=== PATIENT | female | born 1960 | race Caucasian/White ===

== ENCOUNTER → 2016-08-01 | Outpatient (CLI) | payer OTHER ==
--- NOTE | 2016-08-01 15:24 | XR ---
EXAMINATION TYPE: XR KUB DATE OF EXAM: 08/01/2016 3:15 PM CLINICAL DATA: 56-year-old female kidney stone, UTI, bilateral flank pain, PHH COMPARISON: 11/08/2015 FINDINGS: Nonobstructive bowel gas pattern. Cholecystectomy clips. Multiple surgical staple lines projected at the GE junction and left mid abdomen as well, possible Ro ux-en-Y gastric bypass. This can be correlated clinically. No definite suspicious calcification seen though there is extensive bowel content obscuring much of t he renal shadows. Scattered moderate stool. IMPRESSION: No definite suspicious calcification. There is moderate stool and bowel gas causing limitations in vi sualization. Post surgical changes, possible prior Stephanie-en-Y gastric bypass. Clinically correlate.
== END | disposition home or self-care (01) ==
LOC: RADXRMAIN 14:59
PROVIDERS: ATTEND Urology
DX: N20.0 Calculus of kidney (principal); N39.0 Urinary tract infection, site not specified; Z98.890 Other specified postprocedural states
CPT/HCPCS: 74000

== ENCOUNTER → 2016-10-19 | Outpatient (CLI) | payer OTHER ==
--- NOTE | 2016-10-19 10:04 | CT ---
EXAMINATION TYPE: CT abdomen pelvis wo con DATE OF EXAM: 10/19/2016 COMPARISON: KUB 08/01/2016 HISTORY: Rt flank pain, history of stones CT DLP: 1270.7 mGycm Automated exposure control for dose reduction was used. TECHNIQUE: Helical acquisition of images from the lung bases through the pelvis. FINDINGS: LUNG BASES: No significant abnormality is appreciated. AORTA: No significant abnormality is appreciated. LIVER/GB: Patient is post cholecystectomy. Liver shows no mass on this unenhanced exam. Liver is enla rged. PANCREAS: No significant abnormality is seen. SPLEEN: No significant abnormality is seen. ADRENALS: No significant abnormality is seen. KIDNEYS: Nonobstructive calculus at the upper pole the left kidney measures 5 mm, additional 2 mm angie cification also present at the upper pole. No hydronephrosis bilaterally. No evident ureteral calculu s. REPRODUCTIVE ORGANS: Uterus and left adnexal structures are not seen. Suspect a right ovary remains in place. URINARY BLADDER: No significant abnormality is seen. BOWEL: No significant abnormality is seen. Patient is status post gastric sleeve surgery, some mild dilation of the distal esophagus is likely postoperative. Postop change noted to the anterior abdomin al wall in the midline. Postop changes also noted to the jejunum in the left hemiabdomen. FREE AIR: No Free Air is visible. ASCITES: None visible. PELVIC ADENOPATHY: None visualized. RETROPERITONEAL ADENOPATHY: No Retroperitoneal Adenopathy visible. OSSEOUS STRUCTURES: Degenerative disc changes are present in the visualized spine. IMPRESSION: NONOBSTRUCTIVE CALCULI UPPER POLE LEFT KIDNEY. NONCONTRAST EXAM. POSTOP CHANGES DESCRIBED.
== END | disposition home or self-care (01) ==
LOC: RADCTMAIN 06:52
PROVIDERS: ATTEND Urology
DX: N20.0 Calculus of kidney (principal); Z88.0 Allergy status to penicillin; Z88.2 Allergy status to sulfonamides; Z88.1 Allergy status to other antibiotic agents; Z98.890 Other specified postprocedural states
CPT/HCPCS: 74176

== ENCOUNTER → 2016-11-18 | Outpatient (CLI) | payer OTHER ==
[2016-11-18 10:32] LABS: Basophils % (A) 1 %; CH 28.2; CHCM 32.8; Eosinophils # (A) 0.2 k/uL (0-0.7); Eosinophils % (A) 3 %; HCT 42.1 % (34.0-46.0); HDW 2.87; HGB 14.3 gm/dL (11.4-16.0); Luc # (Auto) 0.12; Luc % (Auto) 2; Lymphocytes # (A) 1.8 k/uL (1.0-4.8); Lymphocytes % (A) 29 %; MCH 29.3 pg (25.0-35.0); MCV 86.3 fL (80.0-100.0); Mean Platelet Volume 7.2; Monocytes # (A) 0.4 k/uL (0-1.0); Monocytes % (A) 6 %; Neutrophils # (A) 3.7 k/uL (1.3-7.7); Neutrophils % (A) 60 %; RBC 4.88 m/uL (3.80-5.40); RDW 13.4 % (11.5-15.5); WBC 6.1 k/uL (3.8-10.6); WBC (Perox) 6.39
== END | disposition home or self-care (01) ==
LOC: LABPAT 10:06
PROVIDERS: ATTEND Physician Assistant
DX: Z01.810 Encounter for preprocedural cardiovascular examination (principal); E03.9 Hypothyroidism, unspecified; N20.0 Calculus of kidney; R53.83 Other fatigue
CPT/HCPCS: 36415; 85025; 93005

== ENCOUNTER → 2016-11-18 | Outpatient (CLI) | payer OTHER ==
[2016-11-18 10:50] LABS: ALT 41 U/L (9-52); AST 20 U/L (14-36); Alkaline Phosphatase 149 U/L (38-126); Anion Gap 13 mmol/L; Blood Urea Nitrogen 22 mg/dL (7-17); Calcium 9.8 mg/dL (8.4-10.2); Carbon Dioxide 26 mmol/L (22-30); Chloride 105 mmol/L (98-107); Cholesterol 173 mg/dL (<200); Glucose 91 mg/dL (74-99); HDL Cholesterol 61 mg/dL (40-60); Non-African American GFR(MDRD) >60 (>60 ml/min/1.73 sqM); Potassium 4.4 mmol/L (3.5-5.1); Sodium 144 mmol/L (137-145); Total Bilirubin 0.5 mg/dL (0.2-1.3); Total Protein 7.1 g/dL (6.3-8.2)
== END | disposition home or self-care (01) ==
LOC: LABWHC1 10:08
PROVIDERS: ATTEND Family Medicine
DX: E78.2 Mixed hyperlipidemia (principal); E03.9 Hypothyroidism, unspecified; F41.1 Generalized anxiety disorder; J45.909 Unspecified asthma, uncomplicated
CPT/HCPCS: 36415; 80053; 80061; 84439; 84443

== ENCOUNTER 2016-11-28 07:09 | Day surgery (SDC) | payer OTHER ==
[2016-11-21 11:35] VITALS: BMI 42.7
[~2016-11-28 07:09] MED LIST: DEXAMETHASONE SOD PHOSPHATE 10 MG/ML 1 ML VIAL IV ONE; HYDROmorphone 1 MG/ML 1 ML SYRINGE IVP PRN; LACTATED RINGERS 1,000 ML IV SCH; LIDOCAINE 1% 20 ML VIAL (10MG/ML) FOR IV START INTRADERMA PRN; Pre Op ABX Message 1 EACH MISC MISCELLANE ONE; SCOPOLAMINE 1.5MG/72HR PATCH TRANSDERM ONE
[2016-11-28 07:29] VITALS: RESP 16; TEMP 99.1
[2016-11-28] MEDS ORDERED: LIDOCAINE 1% 20 ML VIAL (10MG/ML) FOR IV START INTRADERMA ONE (07:35)
[2016-11-28] MEDS ORDERED: ONDANSETRON 4 MG/2 ML VIAL IVP ONE (07:43)
--- NOTE | 2016-11-28 07:52 | P.PN ---
Progress Note - Text Ammended History and Physical The patient has a 2x4 mm calculus in the upper pole of the LEFT kidney that will be treated via ESWL. History and Physical was in error. The patient agrees.
--- NOTE | 2016-11-28 08:06 | XR ---
EXAMINATION TYPE: XR KUB DATE OF EXAM: 11/28/2016 COMPARISON: 08/01/2016 HISTORY: Kidney stone TECHNIQUE: One view abdominal series FINDINGS: The osseous structures are intact. The bowel gas pattern is nonspecific. Postsurgical changes in the abdomen noted. Calcification seen by CAT scan not as well appreciated with standard x-ray.. IMPRESSION: 1. Nonspecific abdomen. Calcification seen by CT scan not as well identified by standard x-ray.
[2016-11-28] MEDS ORDERED: fentaNYL (PF) 50 MCG/ML 2 ML AMP ONE (08:27)
[2016-11-28] MEDS ORDERED: MIDAZOLAM 2 MG/2 ML VIAL ONE (08:27)
[2016-11-28] MEDS ORDERED: KETAMINE 10 MG/ML 20 ML VIAL ONE (08:27)
[2016-11-28] MEDS ORDERED: PROPOFOL 10 MG/ML 20 ML VIAL IV ONE (08:27)
--- NOTE | 2016-11-28 09:18 | P.OP ---
Date of Procedure: 11/28/16 Preoperative Diagnosis: Left renal calculus Postoperative Diagnosis: Left renal calculus Procedure(s) Performed: Extracorporal shockwave lithotripsy Implants: Anesthesia: MAC Surgeon: Eron Romero Condition: stable Disposition: PACU Indications for Procedure: Operative Findings: The patient is a 56 year old female with a history of recvurent urolithiasis. A recent CT scan and KUB showed a 2x4 mm calculus in the upper pole of the left kidney. Treatment opotions were reviewed with dr Jade and ESWL has been chosen. The patient was taken to the operating suite where intravenous sedation was given. Patient was placed in the supine position on the fluoroscopy table. The calculus in the upper pole of the left kidney was localized using biplanar fluoroscopy. Lithotripsy was performed using the Dornier compact delta unit. Patient received 2500 shocks at level 5 at a rate of 80 shocks per minute. There appeared to be good fragmentation of the calculus. Anesthesia was reversed and the patient was returned to the recovery room awake and in satisfactory condition. Patient was seen back in follow-up by Dr. Jade in 1 week. A KUB will be obtained at that time. Description of Procedure:
[2016-11-28 09:37] VITALS: BP 131/80; PULSE 66
== END 2016-11-28 10:09 | disposition home or self-care (01) ==
LOC: ORWHC2ENDO 07:09
PROVIDERS: ATTEND Urology
DX: N20.0 Calculus of kidney (principal); J45.909 Unspecified asthma, uncomplicated; E07.9 Disorder of thyroid, unspecified; K21.9 Gastro-esophageal reflux disease without esophagitis; Z87.440 Personal history of urinary (tract) infections; Z79.899 Other long term (current) drug therapy; Z88.1 Allergy status to other antibiotic agents; Z88.0 Allergy status to penicillin; Z88.2 Allergy status to sulfonamides
CPT/HCPCS: 74000; 50590; J2250; J1100; J2405; J3010; J2704

== ENCOUNTER → 2016-12-02 | Outpatient (CLI) | payer OTHER ==
--- NOTE | 2016-12-02 12:33 | XR ---
EXAMINATION TYPE: XR KUB DATE OF EXAM: 12/02/2016 COMPARISON: NONE HISTORY: Pain TECHNIQUE: Single supine KUB image of the abdomen is obtained FINDINGS: Small bowel demonstrates no evidence for dilatation or air fluid levels. Gas and fecal material is seen in non-distended colon. No convincing evidence for pneumoperitoneum. No unusual calcifications. Calcifications seen on CT not well identified. Plain film radiography. The lung bases are clear. The osseous structures are intact. Postoperative changes noted. IMPRESSION: 1. Overall nonobstructive bowel gas pattern.
== END | disposition home or self-care (01) ==
LOC: RADXRMAIN 12:12
PROVIDERS: ATTEND Physician Assistant
DX: N20.0 Calculus of kidney (principal)
CPT/HCPCS: 74000

== ENCOUNTER → 2016-12-23 | Outpatient (CLI) | payer OTHER ==
--- NOTE | 2016-12-26 07:43 | MM ---
Reason for exam: screening (asymptomatic). Last mammogram was performed 1 year and 3 months ago. History: Patient is postmenopausal and had first child at age 29. Benign stereotactic core biopsy of the right breast, August 11, 2000. Benign excisional biopsy of the right breast, July 03, 2000. Core biopsy of the right breast. Took estrogen for 12 years. Physical Findings: A clinical breast exam by your physician is recommended on an annual basis and results should be correlated with mammographic findings. MG Screening Mammo w CAD Bilateral CC and MLO view(s) were taken. Prior study comparison: September 23, 2015, left breast MG work up mamm w CAD LT. September 11, 2015, bilateral MG screening mammo w CAD. The breast tissue is almost entirely fat. Previous mammotome biopsy in the right breast. Asymmetric breast tissue in the left breast. No significant changes when compared with prior studies. ASSESSMENT: Benign, BI-RAD 2 RECOMMENDATION: Routine screening mammogram of both breasts in 1 year.
== END ==
LOC: RADMAMWWP 08:31
PROVIDERS: ATTEND Family Medicine
DX: Z12.31 Encounter for screening mammogram for malignant neoplasm of breast (principal)

== ENCOUNTER → 2017-01-04 | Outpatient (CLI) | payer OTHER ==
--- NOTE | 2017-01-04 22:17 | US ---
EXAMINATION TYPE: US kidneys/renal and bladder DATE OF EXAM: 01/04/2017 COMPARISON: CT 10/19/2016 CLINICAL HISTORY: 48-year-old female N200 CALCULUS OF KIDNEY. Patient stated had lithotripsy in 2016 for left renal stones seen on October CT. TECHNIQUE: Multiple sonographic images of the kidneys and bladder obtained. FINDINGS: Right Kidney: 11.2 x 5.2 x 4.7 cm without hydronephrosis. Left Kidney: 12.8 x 7.4 x 6.6 cm with mild to moderate hydronephrosis. Underdistention of the bladder limits its evaluation. Post Void Residual Volume: 2.3 mL Bilateral Jets seen: Yes Normal Post Void Residual: Yes IMPRESSION: 1. [id number] hydronephrosis on the left. 2. No urinary retention.
== END | disposition home or self-care (01) ==
LOC: RADUSWWP 15:49
PROVIDERS: ATTEND Family Medicine
DX: N13.30 Unspecified hydronephrosis (principal)
CPT/HCPCS: 76770

== ENCOUNTER → 2018-02-23 | Outpatient (CLI) | payer BC, OTHER ==
--- NOTE | 2018-02-26 09:12 | MM ---
Reason for exam: screening (asymptomatic). Last mammogram was performed 1 year and 2 months ago. History: Patient is postmenopausal and had first child at age 29. Benign stereotactic core biopsy of the right breast, August 11, 2000. Benign excisional biopsy of the right breast, July 03, 2000. Core biopsy of the right breast. Took estrogen for 12 years. Physical Findings: A clinical breast exam by your physician is recommended on an annual basis and results should be correlated with mammographic findings. MG Screening Mammo w CAD Bilateral CC and MLO view(s) were taken. Prior study comparison: December 23, 2016, bilateral MG screening mammo w CAD. September 23, 2015, left breast MG work up mamm w CAD LT. There are scattered fibroglandular densities. There is no discrete abnormality. No significant changes when compared with prior studies. ASSESSMENT: Negative, BI-RAD 1 RECOMMENDATION: Routine screening mammogram of both breasts in 1 year.
== END ==
LOC: RADMAMWWP 07:42
PROVIDERS: ATTEND Obstetrics & Gynecology
DX: Z12.31 Encounter for screening mammogram for malignant neoplasm of breast (principal)
CPT/HCPCS: 77067

== ENCOUNTER → 2018-04-20 | Outpatient (CLI) | payer BC, OTHER ==
--- NOTE | 2018-04-20 10:06 | BD ---
EXAMINATION TYPE: Axial Bone Density DATE OF EXAM: 04/20/2018 COMPARISON: Exam of 2008 CLINICAL HISTORY: M 85.8 Height: 5 FT 6 IN Weight: 258 FRAX RISK QUESTIONS: History of Fracture in Adulthood: YES Secondary Osteoporosis: 3. Menopause before 45: YES Rheumatoid Arthritis: YES RISK FACTORS HISTORY OF: Family History of Osteoporosis: YES Active: YES Postmenopausal woman: PARTIAL HYST AGE 38 Take estrogen and/or progesterone medications: TOOK HRT FROM [age] NO LONGER TAKES MEDICATIONS: Thyroid Medications: YES Which medication: SYNTHROID How Lon YEARS Additional Medications: Additional History: SYNTHROID, PREVACID, CELEBREX, SINGULAIR, EFFEXOR, ATORVASTATIN, DETROL, AMTRIPTO LINE, ALBUTEROL EXAM MEASUREMENTS: Bone mineral densitometry was performed using the [employer] System. Bone mineral density as measured about the Lumbar spine is: ----- L1-L4(G/cm2): 1.178 T Score Values are as follows: ----- L2: -0.5 ----- L3: 0.4 ----- L4: 0.6 ----- L1-L4: 0.0 Bone mineral density has: INCREASED 15.6 % since study of: 2008 Bone mineral density about the R hip (g/cm2): 0.702 Bone mineral density about the L hip (g/cm2): 0.743 T Score values are as follows: -----R Neck: -2.4 -----L Neck: -2.1 -----R Total: -1.7 -----L Total: -1.3 Bone mineral density has: DECREASED -4.5 % since study of: 2008 IMPRESSION: Osteopenia (T Score between -2.5 and -1). There is slightly increased risk of fracture and the patient may be considered for treatment. Re-Screen 2-5 years. NOTE: T-SCORE=SD OF THE YOUNG ADULT MEAN.
== END | disposition home or self-care (01) ==
LOC: RADBDWWP 06:55
PROVIDERS: ATTEND Physician Assistant Medical
DX: M85.88 Other specified disorders of bone density and structure, other site (principal)
CPT/HCPCS: 77080

== ENCOUNTER → 2019-05-22 | Outpatient (CLI) | payer BC, OTHER ==
--- NOTE | 2019-05-23 14:31 | MM ---
Reason for exam: screening (asymptomatic). Last mammogram was performed 1 year and 3 months ago. History: Patient is postmenopausal and had first child at age 29. Benign stereotactic core biopsy of the right breast, August 11, 2000. Benign excisional biopsy of the right breast, July 03, 2000. Core biopsy of the right breast. Took estrogen for 12 years. Physical Findings: A clinical breast exam by your physician is recommended on an annual basis and results should be correlated with mammographic findings. MG Screening Mammo w CAD Bilateral CC, MLO, and XCCL view(s) were taken. Prior study comparison: February 23, 2018, bilateral MG screening mammo w CAD. December 23, 2016, bilateral MG screening mammo w CAD. There are scattered fibroglandular densities. Stable benign calcifications. No significant changes when compared with prior studies. ASSESSMENT: Benign, BI-RAD 2 RECOMMENDATION: Routine screening mammogram of both breasts in 1 year.
== END | disposition home or self-care (01) ==
LOC: RADMAMWWP 13:32
PROVIDERS: ATTEND Family Medicine
DX: Z12.31 Encounter for screening mammogram for malignant neoplasm of breast (principal)
CPT/HCPCS: 77067

== ENCOUNTER → 2020-06-19 | Outpatient (CLI) | payer BC, OTHER ==
--- NOTE | 2020-06-19 23:50 | MR ---
EXAMINATION TYPE: MR brain wo/w con DATE OF EXAM: 06/19/2020 COMPARISON: None HISTORY: Diplopia, bilateral tinnitus, un specified hypothyroidism, and headaches. CONTRAST: Standard multiplanar, multisequence MRI departmental protocol utilizing 12 mL intravenous Gadavist ga dolinium contrast. There is mild cerebral cortical atrophy. There is no mass effect nor midline shift. There is no sign of intracranial hemorrhage. The calvarium is intact. The diffusion images show no evidence of an acut e infarct. There is 14 mm rounded area of increased signal in the anterior right internal capsule on the T2 and FLAIR images. The brainstem is intact. There is no evidence of a posterior fossa mass. Con trast images show no pathologic enhancement. There is normal enhancement of the venous sinuses. There is no evidence of mass at the internal auditory canals. There is no evidence of orbital mass. The co rpus callosum is intact. Sella turcica is intact. IMPRESSION: Single rounded area of increased signal in the anterior right internal capsule without enhancement. T his could be an old lacunar infarct. Single focus of demyelinating disease also possible. No evidence of cortical infarct.
== END ==
LOC: RADMRIMAIN 18:37
PROVIDERS: ATTEND Family Medicine
DX: R51.9 Headache, unspecified (principal)
CPT/HCPCS: 70553; A9585

== ENCOUNTER → 2020-09-11 | Outpatient (CLI) | payer BC, OTHER ==
--- NOTE | 2020-09-14 08:21 | MM ---
Reason for exam: screening (asymptomatic). Last mammogram was performed 1 year and 4 months ago. History: Patient is postmenopausal and had first child at age 29. Benign stereotactic core biopsy of the right breast, August 11, 2000. Benign excisional biopsy of the right breast, July 03, 2000. Core biopsy of the right breast. Took estrogen for 12 years. Physical Findings: A clinical breast exam by your physician is recommended on an annual basis and results should be correlated with mammographic findings. MG Screening Mammo w CAD Bilateral CC, MLO, and XCCL view(s) were taken. Prior study comparison: May 22, 2019, bilateral MG screening mammo w CAD. February 23, 2018, bilateral MG screening mammo w CAD. There are scattered fibroglandular densities. There are benign appearing round calcifications in the right breast. Previous mammotome biopsy in the right breast. There is no discrete abnormality. ASSESSMENT: Benign, BI-RAD 2 RECOMMENDATION: Routine screening mammogram of both breasts in 1 year.
== END | disposition home or self-care (01) ==
LOC: RADMAMWWP 09:31
PROVIDERS: ATTEND Family Medicine
DX: Z12.31 Encounter for screening mammogram for malignant neoplasm of breast (principal); Z78.0 Asymptomatic menopausal state
CPT/HCPCS: 77067

== ENCOUNTER → 2020-09-16 | Outpatient (CLI) | payer BC, OTHER ==
[2020-09-16 14:38] LABS: Basophils # (A) 0.04 X 10*3/uL (0.00-0.10); Basophils % (A) 0.8 %; Eosinophils % (A) 2.1 %; HCT 38.4 % (37.2-46.3); HGB 12.3 g/dL (12.0-15.0); Lymphocytes # (A) 1.67 X 10*3/uL (0.90-5.00); Lymphocytes % (A) 35.3 %; MCH 28.1 pg (27.0-32.0); MCV 87.9 fL (80.0-97.0); Mean Platelet Volume 10.9 fL (9.5-12.2); Monocytes # (A) 0.32 X 10*3/uL (0.20-1.00); Monocytes % (A) 6.8 %; Neutrophils # (A) 2.58 X 10*3/uL (1.80-7.70); Neutrophils % (A) 54.6 %; Platelet Count 321 X 10*3/uL (140-440); RBC 4.37 X 10*6/uL (4.10-5.20); RDW 13.1 % (11.5-14.5); WBC 4.73 X 10*3/uL (4.50-10.00)
[2020-09-16 18:06] LABS: African American GFR (CKD) 107.6 (60.0-200.0); Albumin 4.4 g/dL (3.80-4.90); Albumin/Globulin Ratio 1.83 (1.60-3.17); Anion Gap 8.3 mmol/L (4.00-12.00); BUN/Creat Ratio 32.86 Ratio (12.00-20.00); Calcium 9.5 mg/dL (8.7-10.3); Carbon Dioxide 27.7 mmol/L (21.6-31.8); Globulin 2.4 g/dL (1.6-3.3); Non-African American GFR(CKD) 92.9 (60.0-200.0); Potassium 4.7 mmol/L (3.5-5.5); T4, Free (Free Thyroxine) 0.9 ng/dL (0.80-1.80); Total Bilirubin 0.4 mg/dL (0.3-1.2); Total Protein 6.8 g/dL (6.2-8.2)
[2020-09-16 18:10] LABS: Hepatitis B Core IgM Non-Reactive (Non-Reactive); Hepatitis B Surface Antigen Non-Reactive (Non-Reactive)
[2020-09-16 19:43] LABS: Hemoglobin A1C 5.8 % (4.0-6.0)
[2020-09-18 06:52] LABS: Vit B1(Thiamine) 91 ug/L (38-122)
[2020-09-18 12:26] LABS: IgG/Albumin Index (CSF) 0.52 (0.00 - 0.77); Immunoglobulin G 844 mg/dL (700 - 1600)
[2020-09-18 23:55] LABS: HTLV-1 and 2 (EIA) Negative (Negative)
== END | disposition home or self-care (01) ==
LOC: LABWHC1 09:13
PROVIDERS: ATTEND Psychiatry & Neurology Neurology
DX: H46.9 Unspecified optic neuritis (principal); G43.909 Migraine, unspecified, not intractable, without status migrainosus; H53.9 Unspecified visual disturbance; R53.1 Weakness; R20.9 Unspecified disturbances of skin sensation
CPT/HCPCS: 36415; 80053; 82040; 82042; 82306; 82607; 82784; 83036; 83916; 84207; 84425; 84439; 84443; 84481; 85025; 86704; 86705; 86790; 87340

== ENCOUNTER → 2020-10-15 | Outpatient (CLI) | payer BC, OTHER | END | disposition home or self-care (01) | LOC: LABWHC1 09:42 | PROVIDERS: ATTEND Ophthalmology | DX: H00-H59 Diseases of the eye and adnexa (principal); H53.2 Diplopia; H50.22 Vertical strabismus, left eye | CPT/HCPCS: 36415; 83519 ==

== ENCOUNTER → 2021-07-02 | Outpatient (CLI) | payer BC ==
--- NOTE | 2021-07-02 11:41 | CT ---
EXAMINATION TYPE: CT chest wo con DATE OF EXAM: 07/02/2021 COMPARISON: 11/17/2020 HISTORY: 61-year-old female R91.1, Lung nodules TECHNIQUE: Contiguous axial scanning of the chest without IV contrast. Coronal and sagittal reconstru ctions performed. CT DLP: 875.3 mGycm Automated exposure control for dose reduction was used. FINDINGS: Heart normal size without pericardial effusion. Mild proximal LAD coronary artery calcifications are present. Ectatic aortic root at 3.8 cm, unchanged. Mild aneurysm ascending aorta 4.0 cm, unchanged. Minimal at herosclerotic arch calcifications. Conventional arch vessel branching anatomy. Ectatic proximal desce nding thoracic aorta 3.0 cm. No thoracic lymphadenopathy by CT size criteria. Unchanged anterior right breast nodularity suggesti ng a benign etiology. Some scattered stranding atelectasis in the lower lungs. 4 mm right mid lung pulmonary nodule, axial image 30 is unchanged. 4 mm anterior right midlung pulmonary nodule, axial image 32 is unchanged. A couple of 3 mm posterior right mid lung pulmonary nodules, axial image 24 and 25, unchanged. There is a moderate-sized hiatal hernia and postsurgical changes of Stephanie-en-Y gastric bypass. Some of the surgical material extends into the lower chest with a hiatal hernia. Cholecystectomy clips. Midl ine anterior abdominal wall surgical material. Bones: DISH in the lower thoracic spine. IMPRESSION: 1. A FEW SCATTERED PULMONARY NODULES MEASURING UP TO 4 MM REMAIN UNCHANGED FOR 7 MONTHS SUGGESTING A BENIGN ETIOLOGY. CONSIDERATION CAN BE GIVEN TO AN ADDITIONAL ONE-YEAR FOLLOW-UP. 2. MILD ANEURYSM ASCENDING AORTA AT 4.0 CM, UNCHANGED. 3. STATUS POST STEPHANIE-EN-Y GASTRIC BYPASS WITH A MODERATE SIZE HIATAL HERNIA.
== END | disposition home or self-care (01) ==
LOC: RADCTMAIN 07:06
PROVIDERS: ATTEND Psychiatry & Neurology Neurology
DX: R91.8 Other nonspecific abnormal finding of lung field (principal); I71.2 Thoracic aortic aneurysm, without rupture; K44.9 Diaphragmatic hernia without obstruction or gangrene; Z98.84 Bariatric surgery status
CPT/HCPCS: 71250

== ENCOUNTER → 2022-05-10 | Outpatient (CLI) | payer BC ==
--- NOTE | 2022-05-11 08:32 | MM ---
Reason for Exam: Screening (asymptomatic). Last mammogram was performed 1 year(s) and 7 month(s) ago. Patient History: Menarche at age 9. First Full-Term at age 29. Late child-bearing (after 28). Left ovary removed at age 39. Hysterectomy at age 39. Postmenopausal. Patient has history of breast feeding. Estrogen for 12 years until age 54. Core Biopsy on the Right side. 08/11/2000, Benign Stereotactic Core Biopsy on the right side. 07/03/2000, Benign Excisional Biopsy on the right side. Risk Values: Sujatha 5 year model risk: 3.7%. NCI Lifetime model risk: 14.2%. Prior Study Comparison: 09/11/2015 Bilateral Screening Mammogram, [facility]. 09/23/2015 Left Diagnostic Mammogram, [facility]. 12/23/2016 Bilateral Screening Mammogram, [facility]. 02/23/2018 Bilateral Screening Mammogram, [facility]. 05/22/2019 Bilateral Screening Mammogram, [facility]. 09/11/2020 Bilateral Screening Mammogram, [facility]. Tissue Density: There are scattered fibroglandular densities. Findings: Analyzed By CAD. There is no suspicious group of microcalcifications or new suspicious mass in either breast. Overall Assessment: Benign, BI-RAD 2 Management: Screening Mammogram of both breasts in 1 year. A clinical breast exam by your physician is recommended on an annual basis and results should be correlated with mammographic findings. Electronically signed and approved by: Billy Frost M.D. Radiologis
== END | disposition home or self-care (01) ==
LOC: RADMAMWWP 10:50
PROVIDERS: ATTEND Obstetrics & Gynecology
DX: Z12.31 Encounter for screening mammogram for malignant neoplasm of breast (principal); Z78.0 Asymptomatic menopausal state
CPT/HCPCS: 77067

== ENCOUNTER 2022-06-22 08:23 | Day surgery (SDC) | payer BC ==
[2022-06-16 10:52] VITALS: BMI 41.9
[2022-06-22] MEDS ORDERED: ONDANSETRON 4 MG/2 ML VIAL IVP PRN (08:58)
[2022-06-22] MEDS ORDERED: LACTATED RINGERS 1,000 ML IV SCH (08:58)
[2022-06-22] MEDS ORDERED: LIDOCAINE 1% (10MG/ML) FOR IV START INTRADERMA PRN (08:58)
[2022-06-22 09:09] VITALS: TEMP 97.7
[2022-06-22 09:18] LABS: Glucose,Whole Blood 100 mg/dL (70-110)
[2022-06-22] MEDS ORDERED: LIDOCAINE 2% INJ 20 MG/ML (2 ML VIAL) ONE (09:34)
[2022-06-22] MEDS ORDERED: fentaNYL (PF) 50 MCG/ML 2 ML AMP ONE (09:34)
[2022-06-22] MEDS ORDERED: KETAMINE 10 MG/ML 20 ML VIAL ONE (09:34)
[2022-06-22] MEDS ORDERED: GLYCOPYRROLATE 0.2 MG/ML 2 ML VIAL ONE (09:34)
[2022-06-22] MEDS ORDERED: MIDAZOLAM 2 MG/2 ML VIAL ONE (09:34)
[2022-06-22] MEDS ORDERED: PROPOFOL 10 MG/ML 20 ML VIAL IV ONE (09:34)
--- NOTE | 2022-06-22 09:41 | P.GSHP ---
History of Present Illness H&P Date: 06/22/22 CHIEF COMPLAINT: GERD and colon screen HISTORY OF PRESENT ILLNESS: The patient is a 62-year-old female who presents with gastroesophageal reflux disease and need for colon screen. Upper and lower endoscopy were offered for further evaluation and management. PAST MEDICAL HISTORY: Please see list. PAST SURGICAL HISTORY: Please see list. MEDICATIONS: Please see list. ALLERGIES: Please see list. SOCIAL HISTORY: No illicit drug use FAMILY HISTORY: No reports of Crohn disease or ulcerative colitis. REVIEW OF ORGAN SYSTEMS: CONSTITUTIONAL: No reports of fevers or chills. GI: Denies any blood in stools or constipation. PHYSICAL EXAM: VITAL SIGNS: Stable GENERAL: Well-developed pleasant in no acute distress. HEENT: No scleral icterus. Extraocular movements grossly intact. Moist buccal mucosa. NECK: Supple without lymphadenopathy. CHEST: Unlabored respirations. Equal bilateral excursions. CARDIOVASCULAR: Regular rate and rhythm. Distal 2+ pulses. ABDOMEN: Soft, nondistended. MUSCULOSKELETAL: No clubbing, cyanosis, or edema. ASSESSMENT: 1. Gastroesophageal reflux disease 2. Colon screen. PLAN: 1. Recommend proceeding with an upper and lower endoscopy Past Medical History Past Medical History: Asthma, GERD/Reflux, Hyperlipidemia, Rheumatoid Arthritis (RA), Thyroid Disorder Additional Past Medical History / Comment(s): LICHEN SCLEROSUS, ANEMIA, MIGRAINES, MYASTHENIA GRAVIS, HIATAL HERNIA, KIDNEY STONES History of Any Multi-Drug Resistant Organisms: None Reported Past Surgical History: Bariatric Surgery, Bladder Surgery, Breast Surgery, Section, Cholecystectomy, Hysterectomy Additional Past Surgical History / Comment(s): NODE REMOVED LT LOBE THYROID, MICHAEL-EN-Y 10/1994, RT BREAST LUMPECTOMY(BENIGN), BLADDER SLING, EGD, KIDNEY STONES PROCEDURES Past Anesthesia/Blood Transfusion Reactions: Motion Sickness Smoking Status: Never smoker - Past Family History Mother Family Medical History: No Reported History Medications and Allergies Home Medications Medication Instructions Recorded Confirmed Type Albuterol Inhaler [Ventolin 1 puff INHALATION RT-Q4H PRN 01/07/14 06/22/22 History Inhaler] Atorvastatin [Lipitor] 40 mg PO HS 01/07/14 06/22/22 History Celecoxib [Celebrex] 200 mg PO BID 01/07/14 06/22/22 History Lansoprazole 30 mg PO HS 01/07/14 06/22/22 History Levothyroxine Sodium [Synthroid] 150 mcg PO QAM 01/07/14 06/22/22 History Montelukast [Singulair] 10 mg PO HS 01/07/14 06/22/22 History Cetirizine HCl [Zyrtec] 10 mg PO DAILY PRN 11/08/15 06/22/22 History Ferrous Gluconate 28 mg PO DAILY 11/08/15 06/22/22 History Niacinamide [Niacin] 500 mg PO DAILY 11/08/15 06/22/22 History [place]-3 Fatty Acids/Fish Oil [Fish 1,000 mg PO BID 11/08/15 06/22/22 History Oil 1,000 mg Softgel] Ubidecarenone [Co Q-10] 100 mg PO DAILY 11/08/15 06/22/22 History Venlafaxine HCl ER [Effexor Xr] 37.5 mg PO QAM 11/08/15 06/22/22 History Vitamin B Complex 1 cap PO DAILY 11/08/15 06/22/22 History Alendronate Sodium [Fosamax] 70 mg PO SANTOYO 06/16/22 06/22/22 History Biotin [Biotin Disolve] 10,000 mcg PO DAILY 06/16/22 06/22/22 History Pyridostigmine [place] [Mestinon] 60 mg PO 5XD 06/16/22 06/22/22 History predniSONE 10 mg PO DAILY 06/16/22 06/22/22 History Allergies Allergy/AdvReac Type Severity Reaction Status Date / Time trospium chloride Allergy Unknown Verified 06/22/22 09:00 [From [place]] cephalexin monohydrate AdvReac Rash/Hives Verified 06/22/22 09:00 [From Keflex] Penicillins AdvReac Rash/Hives Verified 06/22/22 09:00 sulfamethoxazole AdvReac THRUSH Verified 06/22/22 09:00 [From Bactrim] trimethoprim [From Bactrim] AdvReac THRUSH Verified 06/22/22 09:00 Surgical - Exam Vital Signs Temp Pulse Resp BP Pulse Ox 97.7 F 67 20 160/93 98 06/22/22 09:06 06/22/22 09:06 06/22/22 09:06 06/22/22 09:06 06/22/22 09:06
[2022-06-22 10:16] VITALS: RESP 16
[2022-06-22 10:42] VITALS: BP 146/83; PULSE 55
--- NOTE | 2022-06-22 10:48 | P.PCN ---
Date of Procedure: 06/22/22 Description of Procedure: PREOPERATIVE DIAGNOSIS: Gastroesophageal reflux disease Diaphragmatic hiatal hernia POSTOPERATIVE DIAGNOSIS: Gastric stenosis Gastrojejunal stricture without chronic ulcer without perforation OPERATION: Esophagogastrojejunoscopy with balloon dilatation from 15 to 20 mm for gastric stricture Esophagogastrojejunoscopy with biopsies gastric pouch, jejunum SURGEON: Luz Vieyra MD ANESTHESIA: MAC. INDICATIONS: The patient is a 62-year-old female who presents with a history of gastroesophageal reflux disease and hiatal hernia. Benefits and risks of the procedure were described. Informed consent was obtained. DESCRIPTION: The patient was brought into the endoscopy suite and laid in the left lateral decubitus position. After a timeout was confirmed, the procedure was initiated. An Olympus gastroscope was passed along the posterior oropharynx down to the distal esophagus where the squamocolumnar junction was unremarkable. The gastric pouch was entered. A gastrojejunal stricture of 15 mm was found as the adult gastroscope was 9.5 mm in size. Cold forceps biopsies were obtained of the jejunum and gastric pouch. Additional findings below. Attention was brought to the gastric stenosis. A [employer] balloon dilator was placed through the scope. The scope was reentered for balloon dilation of the gastrojejunal anastomosis. Final insufflation from 15 to 20 mm was performed with a total of 2 minutes. The scope was advanced up to 60 cm from the incisors into the Stephanie limb. The mucosa of the gastrojejunal anastomosis was intact. No chronic gastrojejunal marginal ulcer was encountered. No full-thickness injury was encountered. The GI tract was desufflated. The patient tolerated the procedure well. FINDINGS: Squamocolumnar junction unremarkable at 40 cm. Stricture of approximately 15 mm encountered. Micro-gastric pouch, 2 cm. Cold forceps biopsies obtained of gastric pouch and jejunum. No chronic gastrojejunal ulceration encountered. Successful balloon dilatation to 20 mm. RECOMMENDATIONS: Upper endoscopy as needed.
--- NOTE | 2022-06-22 10:53 | P.PCN ---
Preoperative Diagnosis: PREOPERATIVE DIAGNOSIS: Personal history colon polyps Colonoscopy screening. POSTOPERATIVE DIAGNOSIS: Personal history colon polyps Colonoscopy screening. Diverticulosis, scattered. OPERATION: Colonoscopy to the cecum, ileocecal valve and appendiceal orifice. SURGEON: Luz Vieyra MD. ANESTHESIA: MAC. INDICATIONS: The patient is a 62-year-old female who presents for colonoscopy screening. Benefits and risks were described and informed consent was obtained. DESCRIPTION OF PROCEDURE: The patient had undergone Sutab prep. The patient had been brought into the operating room and laid in the left lateral decubitus position. After adequate intravenous sedation, the rectum was examined with 2% lidocaine jelly. No external hemorrhoids were encountered. The rectal tone was within normal limits. No lesions were palpated in the rectal vault. An Olympus colonoscope was advanced until the cecum, ileocecal valve and appendiceal orifice were clearly viewed. The prep was fair to good. Scattered sigmoid diverticulosis was encountered. No colonic polyps were found. No evidence of focal colitis was found. Retroflexion of the scope demonstrated grade 1 internal hemorrhoids without active bleeding or inflammation. The colon was desufflated. The patient had tolerated the procedure well. Withdrawal time was over 6 minutes. FINDINGS: Aronchick preparation quality scale 2+ (1-5) Internal hemorrhoids, grade 1 No external prolapsed hemorrhoids. No arteriovenous malformations. No adenomatous polyps. No focal colitis. Scattered sigmoid diverticulosis RECOMMENDATIONS: Lower endoscopy in 5 years, 2027 Plan - Discharge Summary Discharge Rx Participant: Yes New Discharge Prescriptions: Continue Celecoxib [CeleBREX] 200 mg PO BID Montelukast [Singulair] 10 mg PO HS Atorvastatin [Lipitor] 40 mg PO HS Albuterol Inhaler [Ventolin Hfa Inhaler] 1 puff INHALATION RT-Q4H PRN PRN Reason: ASTHMA Levothyroxine Sodium [Synthroid] 150 mcg PO QAM Lansoprazole 30 mg PO HS Ubidecarenone [Co Q-10] 100 mg PO DAILY Elwell-3 Fatty Acids/Fish Oil [Fish Oil 1,000 mg Softgel] 1,000 mg PO BID Niacinamide [Niacin] 500 mg PO DAILY Cetirizine HCl [Zyrtec] 10 mg PO DAILY PRN PRN Reason: Allergy Symptoms Vitamin B Complex 1 cap PO DAILY Ferrous Gluconate 28 mg PO DAILY Venlafaxine HCl ER [Effexor XR] 37.5 mg PO QAM Pyridostigmine [place] [Mestinon] 60 mg PO 5XD predniSONE 10 mg PO DAILY Alendronate Sodium [Fosamax] 70 mg PO SANTOYO Biotin [Biotin Disolve] 10,000 mcg PO DAILY Discharge Medication List Albuterol Inhaler [Ventolin Hfa Inhaler] 1 puff INHALATION RT-Q4H PRN 01/07/14 [History] Atorvastatin [Lipitor] 40 mg PO HS 01/07/14 [History] Celecoxib [CeleBREX] 200 mg PO BID 01/07/14 [History] Lansoprazole 30 mg PO HS 01/07/14 [History] Levothyroxine Sodium [Synthroid] 150 mcg PO QAM 01/07/14 [History] Montelukast [Singulair] 10 mg PO HS 01/07/14 [History] Cetirizine HCl [Zyrtec] 10 mg PO DAILY PRN 11/08/15 [History] Ferrous Gluconate 28 mg PO DAILY 11/08/15 [History] Niacinamide [Niacin] 500 mg PO DAILY 11/08/15 [History] Elwell-3 Fatty Acids/Fish Oil [Fish Oil 1,000 mg Softgel] 1,000 mg PO BID 11/08/15 [History] Ubidecarenone [Co Q-10] 100 mg PO DAILY 11/08/15 [History] Venlafaxine HCl ER [Effexor XR] 37.5 mg PO QAM 11/08/15 [History] Vitamin B Complex 1 cap PO DAILY 11/08/15 [History] Alendronate Sodium [Fosamax] 70 mg PO SATNOYO 06/16/22 [History] Biotin [Biotin Disolve] 10,000 mcg PO DAILY 06/16/22 [History] Pyridostigmine [place] [Mestinon] 60 mg PO 5XD 06/16/22 [History] predniSONE 10 mg PO DAILY 06/16/22 [History] Follow up Appointment(s)/Referral(s): Luz Vieyra MD [STAFF PHYSICIAN] - 07/19/22 Patient Instructions/Handouts: Diverticulosis (GEN), Diverticulosis Diet (GEN) Activity/Diet/Wound Care/Special Instructions: Repeat colonoscopy 5 years2027 Discharge Disposition: HOME SELF-CARE
== END 2022-06-22 11:37 | disposition home or self-care (01) ==
LOC: ORWHC2ENDO 08:23
PROVIDERS: ATTEND Surgery Plastic and Reconstructive Surgery
DX: Z12.11 Encounter for screening for malignant neoplasm of colon (principal); K29.50 Unspecified chronic gastritis without bleeding; K31.89 Other diseases of stomach and duodenum; K57.30 Diverticulosis of large intestine without perforation or abscess without bleeding; K44.0 Diaphragmatic hernia with obstruction, without gangrene; K44.9 Diaphragmatic hernia without obstruction or gangrene; K21.9 Gastro-esophageal reflux disease without esophagitis; E78.5 Hyperlipidemia, unspecified; J45.909 Unspecified asthma, uncomplicated; M06.9 Rheumatoid arthritis, unspecified; E07.9 Disorder of thyroid, unspecified; G43.909 Migraine, unspecified, not intractable, without status migrainosus; D64.9 Anemia, unspecified; G70.00 Myasthenia gravis without (acute) exacerbation; Z86.010 Personal history of colon polyps; Z98.84 Bariatric surgery status; Z98.890 Other specified postprocedural states; Z98.82 Breast implant status; Z90.49 Acquired absence of other specified parts of digestive tract; Z90.710 Acquired absence of both cervix and uterus; Z98.891 History of uterine scar from previous surgery; Z79.1 Long term (current) use of non-steroidal anti-inflammatories (NSAID); Z79.899 Other long term (current) drug therapy; Z79.890 Hormone replacement therapy; Z79.52 Long term (current) use of systemic steroids; Z88.0 Allergy status to penicillin; Z88.2 Allergy status to sulfonamides; Z88.1 Allergy status to other antibiotic agents
CPT/HCPCS: 45378; 43239; 43245; J2250; J3010; J2704; J2001; C1726; 88305

== ENCOUNTER → 2022-08-10 | Outpatient (CLI) | payer BC ==
--- NOTE | 2022-08-10 13:34 | FL ---
EXAMINATION TYPE: FL barium swallow DATE OF EXAM: 08/10/2022 CLINICAL INDICATION: 62-year-old female K44.9 DIAPH HERNIA WITHOUT OBS OR GANGRENE COMPARISON: None Total Flouroscopy Time: 2 minutes. Total DAP: 5. 61 images obtained. FINDINGS: The swallowing mechanism is normal and hypopharyngeal anatomy is preserved. The cervical and thoracic portions have a normal course and caliber. There is a small hiatal hernia. Irregularity at the level of the small hiatal hernia results with progressive distention by contrast. Additional mild dysmotility distal esophagus with delay in complete clearance of contrast secondary to blunted secondary stripping waves. No fixed narrowing. The mucosa appears normal. No persistent fi lling defect is encountered. Otherwise, there is prompt passage of contrast across the GE junction and satisfactory passage across the gastrojejunostomy. No significant narrowing identified. Patient status post Stephanie-en-Y gastric by pass. IMPRESSION: 1. Small hiatal hernia. 2. Mild distal esophageal dysmotility. 3. 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 No significant stenosis seen.
== END | disposition home or self-care (01) ==
LOC: RADUSWWP 10:58
PROVIDERS: ATTEND Surgery Plastic and Reconstructive Surgery
DX: K44.9 Diaphragmatic hernia without obstruction or gangrene (principal); K22.4 Dyskinesia of esophagus; Z98.84 Bariatric surgery status
CPT/HCPCS: 74220

== ENCOUNTER → 2022-11-09 | Outpatient (CLI) | payer BC ==
--- NOTE | 2022-11-09 20:36 | CT ---
EXAMINATION TYPE: CT chest wo con DATE OF EXAM: 11/09/2022 COMPARISON: 07/02/2021 HISTORY: Follow up for pulmonary nodule. CT DLP: 511.5 mGycm, Automated exposure control for dose reduction was used. CONTRAST: Performed injected with 0 mL of Isovue 300. TECHNIQUE: Axial images were obtained at 5 mm thick sections. Reconstructed images are reviewed on [employer] computer in the coronal plane. FINDINGS: Thyroid is not identified. There is a 0.3 cm nodule near the major fissure on the right midlung. Series 4 image 30. Punctate nod ular density is within the left upper lung field posteriorly, series 4 image 23. Punctate density is in the anterior right midlung. Series 4 image 33. No enlarged mediastinal or hilar adenopathy is evident. The ascending aorta diameter at the level o f the main pulmonary artery is 3.9 cm. The main pulmonary artery diameter at the bifurcation is 2.9 cm. Hiatal hernia is present. Postsurgical cystic changes are within the stomach. Limited CT sections are obtained through the upper abdomen. Gallbladder is surgically absent. IMPRESSIONS: 1. Stable tiny lung densities. Follow-up exam in one year is recommended to confirm stability.
== END | disposition home or self-care (01) ==
LOC: RADCTMAIN 11:50
PROVIDERS: ATTEND Family Medicine
DX: J98.4 Other disorders of lung (principal); R91.1 Solitary pulmonary nodule
CPT/HCPCS: 71250